=== PATIENT | male | born 1950 | race Caucasian/White ===

== ENCOUNTER 2019-12-05 06:35 | Emergency (ER) | payer MEDICARE, BC ==
[2019-12-05] MEDS ORDERED: Sodium Chloride 0.9% 10 ML Syringe FLUSH PRN (06:59)
--- NOTE | 2019-12-05 07:11 | EDM.PDOC ---
ED HPI GENERAL MEDICAL PROBLEM - General Chief Complaint: General Stated Complaint: cough, shortness of breath Time Seen by Provider: 12/05/19 07:05 Source of Information: Reports: Patient History Limitations: Reports: No Limitations - History of Present Illness INITIAL COMMENTS - FREE TEXT/NARRATIVE: presents with for worsening cough and SOB for the past two weeks. He was started on a zpack after one week of the cough, no relief, then was started on Levaquin, took that only for two days stopped it because it made him dizzy and upset stomach. He called in and was told to stop the levaquin and start cefdinir 300 mg BID 10 days. He picked up the medicine last night and did not start it yet. Patient notes arriving here this early am due to having a coughing attack and broke out in a sweat. He notes having some mild SOB when he walks. HE denies Chest pain or chest pressure, fevers, chills, myalgia, weakness, fatigue, H/a or any sick contacts or known Covid-19 exposures. - Related Data Allergies Allergy/AdvReac Type Severity Reaction Status Date / Time No Known Drug Allergies Allergy Cannot Verified 12/05/19 06:41 Remember Home Meds: Home Meds Albuterol Sulfate [Albuterol Sulfate Hfa] 18 gm IH Q4HR PRN #1 [email or web address] 12/05/19 [Rx] Aspirin 162 mg PO DAILY 12/05/19 [History] Losartan Potassium 50 mg PO DAILY 12/05/19 [History] Nitroglycerin [Nitrostat] 0.4 mg SL ASDIRECTED 12/05/19 [History] Prasugrel HCl [Effient] 10 mg PO DAILY 12/05/19 [History] Spironolactone [Aldactone] 25 mg PO DAILY 12/05/19 [History] atorvaSTATin Calcium [Atorvastatin Calcium] 80 mg PO DAILY 12/05/19 [History] carvediloL [Carvedilol] 6.25 mg PO BID 12/05/19 [History] ED ROS GENERAL - Review of Systems Review Of Systems: See Below Constitutional: Reports: Diaphoresis. Denies: Fever, Chills, Malaise, Weakness, Fatigue HEENT: Denies: Ear Pain, Rhinitis, Sinus Problem, Throat Pain Respiratory: Reports: Wheezing, Cough, Other (occassional productive cough with white sputum.). Denies: Pleuritic Chest Pain, Hemoptysis Cardiovascular: Denies: Chest Pain, Edema, Palpitations GI/Abdominal: Reports: No Symptoms. Denies: Abdominal Pain, Diarrhea, Nausea, Vomiting Musculoskeletal: Reports: No Symptoms Skin: Reports: Diaphoresis, Other (episode of diaphoresis during a coughing episode x1 this early am.) Neurological: Reports: No Symptoms. Denies: Confusion, Dizziness, Headache Psychiatric: Reports: No Symptoms ED EXAM, GENERAL - Physical Exam Exam: See Below Exam Limited By: No Limitations General Appearance: Alert, WD/WN, No Apparent Distress Ears: Normal Canal, Normal TMs Nose: Normal Inspection, Normal Mucosa Throat/Mouth: Normal Inspection, Normal Oropharynx Head: Atraumatic, Normocephalic Neck: Normal Inspection, Supple, Non-Tender Respiratory/Chest: Decreased Breath Sounds, Wheezing. No: Respiratory Distress, Accessory Muscle Use Cardiovascular: Normal Peripheral Pulses, Regular Rate, Rhythm, No Edema, No Murmur Peripheral Pulses: 2+: Radial (L), Radial (R) GI/Abdominal: Normal Bowel Sounds, Soft, Non-Tender, No Mass, Other (obese) Back Exam: Normal Inspection, Full Range of Motion Extremities: Normal Inspection, Normal Range of Motion, Non-Tender. No: Genna's Sign Neurological: Alert, Oriented, Normal Gait Psychiatric: Normal Affect, Normal Mood Skin Exam: Warm, Dry, Intact, Normal Color. No: Diaphoretic Course - Vital Signs Last Recorded V/S: Last Vital Signs Temp 98.0 F 12/05/19 06:43 Pulse 87 12/05/19 07:45 Resp 22 H 12/05/19 07:45 BP 97/64 12/05/19 07:45 Pulse Ox 92 L 12/05/19 07:45 - Orders/Labs/Meds Orders: Active Orders 24 hr Category Date Time Status Peripheral IV Care [RC] . DIRECTED Care 12/05/19 07:00 Active Sodium Chloride 0.9% [Saline Flush] Med 12/05/19 06:59 Active 10 ml FLUSH Q8HR PRN Peripheral IV Insertion Adult [OM.PC] Routine Oth 12/05/19 06:59 Ordered Medication Orders Sodium Chloride (Saline Flush) 10 ml FLUSH Q8HR PRN PRN Reason: keep vein open Labs: Laboratory Tests 12/05/19 12/05/19 12/05/19 Range/Units 06:50 06:50 06:50 WBC 3.57 L (5.00-10.00) 10^3/uL RBC 4.20 L (4.50-6.00) 10^6/uL Hgb 12.7 L (13.0-17.0) g/dL Hct 37.4 L (40.0-52.0) % MCV 89.0 (82.0-92.0) fL MCH 30.2 (27.0-31.0) pg MCHC 34.0 (32.0-36.0) g/dL RDW 13.2 (11.5-14.5) % Plt Count 171 (150-400) 10^3/uL MPV 10.8 H (7.4-10.4) fL Immature Gran % (Auto) 0.6 (0.0-5.0) % Neut % (Auto) 52.0 (50.0-70.0) % Lymph % (Auto) 31.9 (20.0-40.0) % Milam % (Auto) 14.6 H (2.0-8.0) % Eos % (Auto) 0.6 L (1.0-3.0) % Baso % (Auto) 0.3 (0.0-1.0) % Neut # (Auto) 1.86 L (2.50-7.00) 10^3/uL Lymph # (Auto) 1.14 (1.00-4.00) 10^3/uL Milam # (Auto) 0.52 (0.10-0.80) 10^3/uL Eos # (Auto) 0.02 L (0.10-0.30) 10^3/uL Baso # (Auto) 0.01 (0.00-0.10) 10^3/uL Immature Gran # (Auto) 0.02 (0.00-0.50) 10^3/uL Sodium 139 (136-145) mmol/L Potassium 3.3 (3.3-5.3) mmol/L Chloride 103 (98-115) mmol/L Carbon Dioxide 24.6 (21.0-32.0) mmol/L Anion Gap 14.7 (5-15) mmol/L BUN 9 (6-25) mg/dL Creatinine 0.74 (0.51-1.17) mg/dL Est Cr Clr Drug Dosing 85.02 mL/min Estimated GFR (MDRD) > 60 mL/min Glucose 134 H (75 - 99) mg/dL Lactic Acid (0.4-2.0) mmol/L Calcium 8.1 L (8.7-10.3) mg/dL Troponin I < 0.04 (0.00-0.070) ng/mL C-Reactive Protein 7.7 H (0.0-0.9) mg/dL B-Natriuretic Peptide 28 (0-100) pg/mL 12/05/19 Range/Units 06:50 WBC (5.00-10.00) 10^3/uL RBC (4.50-6.00) 10^6/uL Hgb (13.0-17.0) g/dL Hct (40.0-52.0) % MCV (82.0-92.0) fL MCH (27.0-31.0) pg MCHC (32.0-36.0) g/dL RDW (11.5-14.5) % Plt Count (150-400) 10^3/uL MPV (7.4-10.4) fL Immature Gran % (Auto) (0.0-5.0) % Neut % (Auto) (50.0-70.0) % Lymph % (Auto) (20.0-40.0) % Milam % (Auto) (2.0-8.0) % Eos % (Auto) (1.0-3.0) % Baso % (Auto) (0.0-1.0) % Neut # (Auto) (2.50-7.00) 10^3/uL Lymph # (Auto) (1.00-4.00) 10^3/uL Milam # (Auto) (0.10-0.80) 10^3/uL Eos # (Auto) (0.10-0.30) 10^3/uL Baso # (Auto) (0.00-0.10) 10^3/uL Immature Gran # (Auto) (0.00-0.50) 10^3/uL Sodium (136-145) mmol/L Potassium (3.3-5.3) mmol/L Chloride (98-115) mmol/L Carbon Dioxide (21.0-32.0) mmol/L Anion Gap (5-15) mmol/L BUN (6-25) mg/dL Creatinine (0.51-1.17) mg/dL Est Cr Clr Drug Dosing mL/min Estimated GFR (MDRD) mL/min Glucose (75 - 99) mg/dL Lactic Acid 1.5 (0.4-2.0) mmol/L Calcium (8.7-10.3) mg/dL Troponin I (0.00-0.070) ng/mL C-Reactive Protein (0.0-0.9) mg/dL B-Natriuretic Peptide (0-100) pg/mL Meds: Medications Generic Name Dose Route Start Last Admin Trade Name Freq PRN Reason Stop Dose Admin Sodium Chloride 10 ml 12/05/19 06:59 Saline Flush FLUSH Q8HR PRN keep vein open - Re-Assessments/Exams Free Text/Narrative Re-Assessment/Exam: on arrival to ED, spO2 was 88% on a room air when he got done walking, he was placedon 2 L, sp 02 97%, I did take him off the 2 L after 30 minutes, sP o2 dropped down to 90%. He is not SOB. pt was given 2 L of NC, SP 02 95-96%. Patient has no cp, systematic symptoms, mild cough non prod while sitting in bed. 12/05/19 07:31 He denies any hx of hemoptysis, night sweats, any foreign travel. BP is slightly low, he did take his home BP meds, and normally runs on the lower side, MAPs all well above 65 mmHg. 12/05/19 08:02 12/05/19 08:25 consult patient with his PCP caroline Hobbs 19 test order to be sent state, return precautions discussed with patient. 12/05/19 08:27 12/05/19 08:37 no signs of pneumonia, consider COPD/bronchitis, continue cefdinir, inhaler added for the wheezing, return precaustions discussed with patient, Departure - Departure Time of Disposition: 08:25 Disposition: Home, Self-Care 01 Condition: Good Clinical Impression: Bronchitis Acute bronchitis Qualifiers: Bronchitis organism: unspecified organism Qualified Code(s): J20.9 - Acute bronchitis, unspecified - Discharge Information *PRESCRIPTION DRUG MONITORING PROGRAM REVIEWED*: Not Applicable *COPY OF PRESCRIPTION DRUG MONITORING REPORT IN PATIENT EJ: Not Applicable Prescriptions: Albuterol Sulfate [Albuterol Sulfate Hfa] 18 gm IH Q4HR PRN #1 [email or web address] PRN Reason: Wheezing Instructions: Acute Bronchitis, Adult Referrals: Faby Westbrook PA-C [Primary Care Provider] - Forms: ED Department Discharge Additional Instructions: return if SOB occurs, cough does not improve, or any new or concerning symptoms. use the inhaler for the cough/shortness of breath/ wheezing Sepsis Event Note (ED) - Evaluation Sepsis Screening Result: No Definite Risk - Focused Exam Vital Signs: Vital Signs Temp Pulse Resp BP Pulse Ox 12/05/19 07:45 87 22 H 97/64 92 L 12/05/19 07:30 82 22 H 106/71 92 L 12/05/19 07:15 84 18 96/78 93 L 12/05/19 07:03 85 24 H 105/79 95 12/05/19 06:45 84 24 H 113/68 93 L 12/05/19 06:43 98.0 F 87 22 H 115/77 88 L - My Orders Last 24 Hours: My Active Orders 12/05/19 06:59 Sodium Chloride 0.9% [Saline Flush] 10 ml FLUSH Q8HR PRN Peripheral IV Insertion Adult [OM.PC] Routine 12/05/19 07:00 Peripheral IV Care [RC] . DIRECTED - Assessment/Plan Last 24 Hours: My Active Orders 12/05/19 06:59 Sodium Chloride 0.9% [Saline Flush] 10 ml FLUSH Q8HR PRN Peripheral IV Insertion Adult [OM.PC] Routine 12/05/19 07:00 Peripheral IV Care [RC] . DIRECTED
[2019-12-05 07:47] LABS: ANION GAP 14.7 mmol/L (5-15); CHLORIDE,CL 103 mmol/L (98-115); SODIUM,NA 139 mmol/L (136-145)
--- NOTE | 2019-12-05 08:13 | CR ---
[id number] RAD/RAD Chest PA or AP 1V EXAM: RAD Chest PA or AP 1V INDICATION: COUGH, SHORTNESS OF BREATH. COMPARISON: 2011. DISCUSSION: Cardiomediastinal silhouette is normal in size and contour. No infiltrate, effusion, pneumothorax, or edema. Scarring in the right lung base. IMPRESSION: As above. Aubrey Zapata MD 12/05/19 0812 Thank you for allowing us to participate in the care of your patient.
[2019-12-05 08:45] VITALS: BP 109/88; PULSE 88
== END 2019-12-05 09:00 | disposition home or self-care (01) ==
LOC: KA.ED 06:35
DX: J20.9 Acute bronchitis, unspecified (principal); E66.9 Obesity, unspecified; U07.1 COVID-19; Z68.30 Body mass index [BMI] 30.0-30.9, adult; Z79.82 Long term (current) use of aspirin; Z79.899 Other long term (current) drug therapy
CPT/HCPCS: 71045; 80048; 83605; 83880; 84484; 85025; 86140; 99283; 99285; U0002

== ENCOUNTER 2021-03-05 16:50 | Emergency (ER) | payer MEDICARE, BC ==
--- NOTE | 2021-03-05 17:10 | EDM.PDOC ---
ED HPI GENERAL MEDICAL PROBLEM - General Chief Complaint: Cardiovascular Problem Stated Complaint: COUGH Time Seen by Provider: 03/05/21 17:09 Source of Information: Reports: Patient, Family History Limitations: Reports: No Limitations - History of Present Illness INITIAL COMMENTS - FREE TEXT/NARRATIVE: Sven, 70-year-old male, presents by private vehicle to the emergency department for evaluation of his respiratory/cardiac function and questioning COVID-19. Today while seated in chair he felt lightheaded/dizzy and has had a noted cough for the past few days. He denies fever or chills, and in general has felt well at his baseline. He underwent a preoperative physical on the 25 February 2021 at [facility] with no documentation of that visit available. He is not vaccinated for Covid-19. Onset: Today Duration: Minutes:, Intermittent Location: Reports: Chest Quality: Reports: Other Severity: Moderate Improves with: Reports: None Worsens with: Reports: None Context: Reports: Other Associated Symptoms: Reports: Cough, Other (dizziness) - Related Data Allergies Allergy/AdvReac Type Severity Reaction Status Date / Time No Known Drug Allergies Allergy Cannot Verified 03/05/21 17:41 Remember Home Meds: Home Meds Aspirin 81 mg PO DAILY 12/05/19 [History] Losartan Potassium 50 mg PO DAILY 12/05/19 [History] Nitroglycerin [Nitrostat] 0.4 mg SL ASDIRECTED 12/05/19 [History] Prasugrel HCl [Effient] 10 mg PO DAILY 12/05/19 [History] Spironolactone [Aldactone] 25 mg PO DAILY 12/05/19 [History] atorvaSTATin Calcium [Atorvastatin Calcium] 80 mg PO DAILY 12/05/19 [History] carvediloL [Carvedilol] 6.25 mg PO BID 12/05/19 [History] Acetaminophen [Tylenol Arthritis] 650 mg PO DAILY PRN 03/05/21 [History] Ascorbate Calcium [Vitamin C] 500 mg PO DAILY 03/05/21 [History] Diclofenac Sodium [Voltaren] 75 mg PO BIDMEALS PRN 03/05/21 [History] Multivitamin with Minerals [Multiple Vitamin] 1 tab PO DAILY 03/05/21 [History] Non-Formulary Medication [NF Drug] 1 applic TOP BID 03/05/21 [History] traMADol [Ultram] 50 - 100 mg PO Q6H PRN 03/05/21 [History] Past Medical History HEENT History: Reports: Impaired Vision Cardiovascular History: Reports: High Cholesterol, Hypertension, [place], Stents Respiratory History: Reports: None Gastrointestinal History: Reports: None, Other (See Below) ("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) Genitourinary History: Reports: None Musculoskeletal History: Reports: None Neurological History: Reports: None Psychiatric History: Reports: None Endocrine/Metabolic History: Reports: Obesity/BMI 30+ Hematologic History: Reports: None Immunologic History: Reports: None Oncologic (Cancer) History: Reports: None Dermatologic History: Reports: None - Past Surgical History Cardiovascular Surgical History: Reports: Coronary Artery Stent Respiratory Surgical History: Reports: None GI Surgical History: Reports: None Male Surgical History: Reports: None Endocrine Surgical History: Reports: None Neurological Surgical History: Reports: None Musculoskeletal Surgical History: Reports: None Oncologic Surgical History: Reports: None Dermatological Surgical History: Reports: None Social & Family History - Family History Family Medical History: No Pertinent Family History - Caffeine Use Caffeine Use: Reports: None ED ROS GENERAL - Review of Systems Review Of Systems: See Below Constitutional: Reports: No Symptoms HEENT: Reports: No Symptoms Respiratory: Reports: Cough Cardiovascular: Reports: Blood Pressure Problem, Lightheadedness. Denies: Chest Pain, Dyspnea on Exertion, Palpitations, Syncope Endocrine: Reports: No Symptoms GI/Abdominal: Reports: No Symptoms : Reports: No Symptoms Musculoskeletal: Reports: Joint Pain (knee) Skin: Reports: No Symptoms Neurological: Reports: Dizziness Psychiatric: Reports: No Symptoms Hematologic/Lymphatic: Reports: No Symptoms Immunologic: Reports: No Symptoms ED EXAM, GENERAL - Physical Exam Exam: See Below Free Text/Narrative:: Alert, oriented, in no acute distress. There is no evidence of cyanosis nor pallor. HEENT is negative the discharge no deformity. PERRLA no icterus no injection. Mazie moist mucous membranes with no erythema or exudate noted in the oral cavity. Neck is soft supple short thomason neck with no lymphadenopathy no JVD appreciated. Thorax is clear throughout with no wheezes nor crackles exhalation does not induce cough. Cardiac is somewhat distant due to body habitus with S1-S2 I do not appreciate murmur. Abdomen is rotund soft bowel sounds are present there is no hepatosplenomegaly nor tenderness noted. No edema to the lower extremities. Initial hypertensive reading when repeated is in normal standings with good oxygen saturation denying any chest pain shortness of breath with his predominant event being a 3-day cough and the dizziness or lightheadedness that experienced this afternoon. This is not reproduced since his arrival nor actual ly since the one event while seated at home. #1 Interpretation EKG Date: 03/05/21 Time: 17:36 Rhythm: NSR Rate (Beats/Min): 66 [place]: Normal P-Wave: Present QRS: Normal ST-T: Normal QT: Normal Comparison: NA - No Prior EKG (Image unavailable, written summary comparison.) Course - Vital Signs Last Recorded V/S: Last Vital Signs Temp 96.4 F L 03/05/21 16:55 Pulse 70 03/05/21 18:00 Resp 20 03/05/21 18:00 BP 142/75 H 03/05/21 18:00 Pulse Ox 95 03/05/21 18:00 - Orders/Labs/Meds Orders: Active Orders 24 hr Category Date Time Status Chest 1V Frontal [CR] Stat Exams 03/05/21 17:07 Ordered EKG 12 Lead [EK] Stat Ther 03/05/21 17:08 Ordered Labs: Laboratory Tests 03/05/21 03/05/21 03/05/21 Range/Units 17:00 17:15 17:15 WBC 4.17 L (5.00-10.00) 10^3/uL RBC 4.08 L (4.50-6.00) 10^6/uL Hgb 12.8 L (13.0-17.0) g/dL Hct 38.2 L (40.0-52.0) % MCV 93.6 H D (82.0-92.0) fL MCH 31.4 H (27.0-31.0) pg MCHC 33.5 (32.0-36.0) g/dL RDW 13.1 (11.5-14.5) % Plt Count 174 (150-400) 10^3/uL MPV 10.0 (7.4-10.4) fL Immature Gran % (Auto) 0.7 (0.0-5.0) % Neut % (Auto) 44.9 L (50.0-70.0) % Lymph % (Auto) 35.3 (20.0-40.0) % Luna % (Auto) 17.0 H (2.0-8.0) % Eos % (Auto) 1.9 (1.0-3.0) % Baso % (Auto) 0.2 (0.0-1.0) % Neut # (Auto) 1.87 L (2.50-7.00) 10^3/uL Lymph # (Auto) 1.47 (1.00-4.00) 10^3/uL Luna # (Auto) 0.71 (0.10-0.80) 10^3/uL Eos # (Auto) 0.08 L (0.10-0.30) 10^3/uL Baso # (Auto) 0.01 (0.00-0.10) 10^3/uL Immature Gran # (Auto) 0.03 (0.00-0.50) 10^3/uL Sodium 141 (136-145) mmol/L Potassium 3.8 (3.5-5.1) mmol/L Chloride 102 (98-107) mmol/L Carbon Dioxide 26.3 (21.0-32.0) mmol/L Anion Gap 16.5 H (5-15) mmol/L BUN 12 (7-18) mg/dL Creatinine 0.74 (0.51-1.17) mg/dL Est Cr Clr Drug Dosing 85.60 mL/min Estimated GFR (MDRD) > 60 mL/min Glucose 161 H (70-140) mg/dL Calcium 8.1 L (8.7-10.3) mg/dL Total Bilirubin 1.2 H (0.2-1.0) mg/dL AST 22 (15-37) U/L ALT 41 (14-63) U/L Alkaline Phosphatase 57 (46-116) U/L Troponin I High Sens 9.100 (0-76.000) pg/mL Total Protein 6.7 (6.4-8.2) g/dL Albumin 3.54 (3.40-5.00) g/dL SARS CoV-2 RNA Rapid ANNABELLE Negative (NEGATIVE) - Radiology Interpretation Free Text/Narrative:: Cardiac silhouette upper limits of normal with no evidence of infiltrate there is some comparative scarring in the right lung base from comparative in 2019. Departure - Departure Time of Disposition: 18:15 Disposition: Home, Self-Care 01 Condition: Good Clinical Impression: Cough, COVID-19 ruled out by laboratory testing, Hyperglycemia - Discharge Information *PRESCRIPTION DRUG MONITORING PROGRAM REVIEWED*: Not Applicable *COPY OF PRESCRIPTION DRUG MONITORING REPORT IN PATIENT EJ: Not Applicable Instructions: Cough, Adult, COVID-19: Quarantine vs. Isolation - [facility] (03/25/2020) Referrals: Carmenza Garcia, [employer] [Primary Care Provider] - Forms: ED Department Discharge Additional Instructions: Your test results today returned with mildly elevated blood sugar which would be attributed to your cough syrup and eating before the emergency department visit. Your Covid 19 test is negative. Your EKG shows no evidence of any cardiac involvement, overall stable and unchanged since May 2017. Lab work shows no evidence of infection with your electrolytes and kidney function all being normal. You need to continue your medications as directed. Cough syrup or lozenges as needed. Avoid high sugar high carbohydrate diet. Follow-up as scheduled for your knee replacement as you will need a Covid test prior to that procedure being performed. Follow-up with your clinic as scheduled and needed and consider emergency d epartment services outside of clinic hours. - Problem List & Annotations (1) Cough SNOMED Code(s): 13154446 Code(s): R05.9 - COUGH, UNSPECIFIED Status: Acute Priority: Medium (2) Hyperglycemia SNOMED Code(s): 06602494 Code(s): R73.9 - HYPERGLYCEMIA, UNSPECIFIED Status: Acute Priority: Medium (3) COVID-19 ruled out by laboratory testing SNOMED Code(s): 490330180255432711, 387525504387171897 Code(s): Z20.822 - CONTACT WITH AND (SUSPECTED) EXPOSURE TO COVID-19 Status: Acute Priority: High - Problem List Review Problem List Initiated/Reviewed/Updated: Yes - My Orders Last 24 Hours: My Active Orders 03/05/21 17:07 Chest 1V Frontal [CR] Stat 03/05/21 17:08 EKG 12 Lead [EK] Stat - Assessment/Plan Last 24 Hours: My Active Orders 03/05/21 17:07 Chest 1V Frontal [CR] Stat 03/05/21 17:08 EKG 12 Lead [EK] Stat Plan: Your test results today returned with mildly elevated blood sugar which would be attributed to your cough syrup and eating before the emergency department visit. Your Covid 19 test is negative. Your EKG shows no evidence of any cardiac involvement, overall stable and unchanged since May 2017. Lab work shows no evidence of infection with your electrolytes and kidney function all being normal. You need to continue your medications as directed. Cough syrup or lozenges as needed. Avoid high sugar high carbohydrate diet. Follow-up as scheduled for your knee replacement as you will need a Covid test prior to that procedure being performed. Follow-up with your clinic as scheduled and needed and consider emergency department services outside of clinic hours.
[2021-03-05 17:42] LABS: ANION GAP 16.5 mmol/L (5-15); CHLORIDE,CL 102 mmol/L (98-107); SODIUM,NA 141 mmol/L (136-145)
[2021-03-05 18:30] VITALS: BP 142/75; PULSE 70
== END 2021-03-05 18:30 | disposition home or self-care (01) ==
LOC: KA.ED 16:50
DX: R05.9 Cough, unspecified (principal); R73.9 Hyperglycemia, unspecified; E78.00 Pure hypercholesterolemia, unspecified; I10 Essential (primary) hypertension; I25.2 Old myocardial infarction; E66.9 Obesity, unspecified; Z68.31 Body mass index [BMI] 31.0-31.9, adult; Z95.5 Presence of coronary angioplasty implant and graft; Z79.82 Long term (current) use of aspirin; Z79.899 Other long term (current) drug therapy; Z20.822 Contact with and (suspected) exposure to COVID-19
CPT/HCPCS: 36415; 71045; 80053; 84484; 85025; 93010; 99284; 99284-25; U0002

== ENCOUNTER 2021-08-09 22:55 | Emergency (ER) | payer MEDICARE, BC ==
[2021-08-09] MEDS ORDERED: Sodium Chloride 0.9% 1,000 ML ONE (23:19)
[2021-08-09] MEDS ORDERED: Sodium Chloride 0.9% 1,000 ML IV ONE (23:25)
[2021-08-09] MEDS ORDERED: HYDROmorphone 1 MG/ML Syringe ONE (23:54)
[2021-08-09] MEDS ORDERED: HYDROmorphone 1 MG/ML Syringe IVPUSH ONE (23:56)
[2021-08-10 00:08] LABS: ANION GAP 15.7 mmol/L (5-15); CHLORIDE,CL 104 mmol/L (98-107); SODIUM,NA 139 mmol/L (136-145)
[2021-08-10] MEDS ORDERED: Iopamidol 755 Mg/ML 75 ML Bottle IVPUSH ONE (00:14)
[2021-08-10] MEDS ORDERED: Sodium Chloride 0.9% 50 ML IV ONE (00:20)
[2021-08-10] MEDS ORDERED: Iopamidol 755 Mg/ML 100 ML Bottle IVPUSH ONE (00:39)
[2021-08-10] MEDS: Sodium Chloride 0.9% 1,000 ML IV SCH ×4 (00:50→15:00)
[2021-08-10] MEDS ORDERED: cefTRIAXone 1 GM Vial IVPUSH ONE (02:28)
[2021-08-10] MEDS ORDERED: metroNIDAZOLE/Normal Saline 500 MG in Premix Bag 1 BAG IV ONE (02:28)
[2021-08-10] MEDS ORDERED: HYDROmorphone 1 MG/ML Syringe IVPUSH PRN (02:42)
[2021-08-10] MEDS ORDERED: Water For Injection, Sterile 20 ML ONE (02:42)
[2021-08-10 16:41] VITALS: BP 154/78; PULSE 74
== END 2021-08-10 16:00 ==
LOC: KA.ED 22:55
DX: K85.90 Acute pancreatitis without necrosis or infection, unspecified (principal); K81.0 Acute cholecystitis; U07.1 COVID-19; E78.00 Pure hypercholesterolemia, unspecified; I10 Essential (primary) hypertension; I25.2 Old myocardial infarction; E66.9 Obesity, unspecified; Z79.82 Long term (current) use of aspirin; Z95.5 Presence of coronary angioplasty implant and graft; Z20.822 Contact with and (suspected) exposure to COVID-19; Z68.31 Body mass index [BMI] 31.0-31.9, adult
CPT/HCPCS: 36415; 74177; 80053; 81003; 83605; 83690; 85025; 93005; 96365; 96375; 96376; 99284; 99285-25; J0696; J1170; J3490; J7030; Q9967; U0002

== ENCOUNTER 2021-08-13 10:09 | Emergency (ER) | payer MEDICARE, BC ==
[2021-08-13 13:46] VITALS: BP 121/76; PULSE 71
== END 2021-08-13 11:00 | disposition home or self-care (01) ==
LOC: KA.ED 10:09
DX: K92.1 Melena (principal); E78.00 Pure hypercholesterolemia, unspecified; I10 Essential (primary) hypertension; I25.2 Old myocardial infarction; E66.9 Obesity, unspecified; Z68.30 Body mass index [BMI] 30.0-30.9, adult; Z95.5 Presence of coronary angioplasty implant and graft; Z79.82 Long term (current) use of aspirin; Z79.899 Other long term (current) drug therapy
CPT/HCPCS: 36415; 85025; 99284

== ENCOUNTER 2021-08-14 16:30 | Emergency (ER) | payer MEDICARE, BC ==
[2021-08-14 16:43] VITALS: BP 113/79; PULSE 94
== END 2021-08-14 17:08 | disposition home or self-care (01) ==
LOC: KA.ED 16:30
DX: K21.9 Gastro-esophageal reflux disease without esophagitis (principal); E78.00 Pure hypercholesterolemia, unspecified; I10 Essential (primary) hypertension; I25.2 Old myocardial infarction; E66.9 Obesity, unspecified; Z68.32 Body mass index [BMI] 32.0-32.9, adult; Z95.5 Presence of coronary angioplasty implant and graft; Z79.899 Other long term (current) drug therapy
CPT/HCPCS: 99283; 99284

== ENCOUNTER 2021-08-14 20:35 | Emergency (ER) | payer MEDICARE, BC ==
[2021-08-14] MEDS ORDERED: Ketorolac 30 MG/ML SDV ONE (20:50)
[2021-08-14] MEDS ORDERED: Ketorolac 30 MG/ML SDV IVPUSH ONE (21:05)
[2021-08-14] MEDS ORDERED: Iopamidol 755 Mg/ML 100 ML Bottle IVPUSH ONE (21:17)
[2021-08-14] MEDS ORDERED: Sodium Chloride 0.9% 50 ML IV ONE (21:18)
[2021-08-14 21:40] LABS: ANION GAP 15.3 mmol/L (5-15); CHLORIDE,CL 106 mmol/L (98-107); SODIUM,NA 141 mmol/L (136-145)
[2021-08-14] MEDS ORDERED: Sodium Chloride 0.9% 1,000 ML IV ONE (23:49)
[2021-08-15] MEDS ORDERED: metroNIDAZOLE/Normal Saline 500 MG in Premix Bag 1 BAG IV ONE (00:26)
[2021-08-15] MEDS ORDERED: cefTRIAXone 1 GM Vial IVPUSH ONE (00:26)
[2021-08-15] MEDS ORDERED: Water For Injection, Sterile 20 ML ONE (00:54)
[2021-08-15] MEDS ORDERED: Sodium Chloride 0.9% 1,000 ML ONE (01:05)
[2021-08-15 04:58] VITALS: BP 124/76; PULSE 86
== END 2021-08-15 01:15 ==
LOC: KA.ED 20:35
DX: K85.90 Acute pancreatitis without necrosis or infection, unspecified (principal); K81.0 Acute cholecystitis; E78.00 Pure hypercholesterolemia, unspecified; I10 Essential (primary) hypertension; I25.2 Old myocardial infarction; E66.9 Obesity, unspecified; Z95.5 Presence of coronary angioplasty implant and graft; Z79.82 Long term (current) use of aspirin; Z79.899 Other long term (current) drug therapy; Z68.32 Body mass index [BMI] 32.0-32.9, adult
CPT/HCPCS: 36415; 74177; 80053; 83690; 85025; 86140; 96374; 96375; 99284; 99285-25; J0696; J3490; J7030; Q9967

== ENCOUNTER 2021-10-17 10:05 | Emergency (ER) | payer MEDICARE, BC ==
[2021-10-17] MEDS ORDERED: Aspirin 81 MG Tab.Chew ONE (10:17)
[2021-10-17] MEDS ORDERED: Aspirin 81 MG Tab.Chew PO ONE (10:21)
[2021-10-17 16:29] VITALS: BP 153/78; PULSE 57
== END 2021-10-17 16:40 | disposition home or self-care (01) ==
LOC: KA.ED 10:05
DX: R00.2 Palpitations (principal); R61 Generalized hyperhidrosis; E78.00 Pure hypercholesterolemia, unspecified; I10 Essential (primary) hypertension; I25.2 Old myocardial infarction; E66.9 Obesity, unspecified; Z68.30 Body mass index [BMI] 30.0-30.9, adult; Z79.899 Other long term (current) drug therapy; Z79.82 Long term (current) use of aspirin; Z87.891 Personal history of nicotine dependence
CPT/HCPCS: 36415; 71045; 80053; 83735; 84484; 85025; 93005; 99285; A9270-GY

== ENCOUNTER 2023-03-07 11:10 | Emergency (ER) | payer MEDICARE, BC ==
[2023-03-07] MEDS: Sodium Chloride 0.9% 1,000 ML IV ONE (11:28)
[2023-03-07 11:29] LABS: BASOPHILS ABSOLUTE AUTO 0.02 10^3/uL (0.00-0.10); BASOPHILS PERCENT AUTO 0.4 % (0.0-1.0); EOSINOPHILS ABSOLUTE AUTO 0.07 10^3/uL (0.10-0.30); EOSINOPHILS PERCENT AUTO 1.4 % (1.0-3.0); HEMATOCRIT 35.8 % (40.0-52.0); IMMATURE GRAN ABSOLUTE AUTO 0.02 10^3/uL (0.00-0.50); IMMATURE GRAN PERCENT AUTO 0.4 % (0.0-5.0); LYMPHOCYTES ABSOLUTE AUTO 1.65 10^3/uL (1.00-4.00); LYMPHOCYTES PERCENT AUTO 33.7 % (20.0-40.0); MEAN CORPUSCULAR HEMOGLOBIN 31.3 pg (27.0-31.0); MEAN CORPUSCULAR HGB CONC 33.5 g/dL (32.0-36.0); MEAN CORPUSCULAR VOLUME 93.5 fL (82.0-92.0); MEAN PLATELET VOLUME 10.1 fL (7.4-10.4); MONOCYTES ABSOLUTE AUTO 0.52 10^3/uL (0.10-0.80); MONOCYTES PERCENT AUTO 10.6 % (2.0-8.0); NEUTROPHILS ABSOLUTE AUTO 2.61 10^3/uL (2.50-7.00); NEUTROPHILS PERCENT AUTO 53.5 % (50.0-70.0); PLATELET COUNT,PLT 282 10^3/uL (150-400); RED BLOOD CELL COUNT 3.83 10^6/uL (4.50-6.00); RED CELL DISTRIBUTION WIDTH 13.7 % (11.5-14.5); WHITE BLOOD CELL COUNT,WBC 4.89 10^3/uL (5.00-10.00)
[2023-03-07 11:49] LABS: ALANINE AMINOTRANSFERASE,ALT 32 U/L (14-63); ALBUMIN 3.17 g/dL (3.40-5.00); ALKALINE PHOSPHATASE 54 U/L (46-116); ANION GAP 13.7 mmol/L (5-15); ASPARTATE AMNIOTRANSFERASE,AST 22 U/L (15-37); BILIRUBIN TOTAL 1.1 mg/dL (0.2-1.0); BLOOD UREA NITROGEN,BUN 20 mg/dL (7-18); CALCIUM 8.1 mg/dL (8.7-10.3); CARBON DIOXIDE,CO2 24.2 mmol/L (21.0-32.0); CHLORIDE,CL 104 mmol/L (98-107); CREATININE 1.21 mg/dL (0.51-1.17); ESTIMATED GFR 63 mL/min (>=60); GLUCOSE RANDOM 129 mg/dL (70-140); POTASSIUM,K 3.9 mmol/L (3.5-5.1); PROTEIN TOTAL,TP 6.3 g/dL (6.4-8.2); SODIUM,NA 138 mmol/L (136-145)
[2023-03-07 15:35] VITALS: BP 138/70; PULSE 58
== END 2023-03-07 13:13 | disposition home or self-care (01) ==
LOC: KA.ED 11:10
DX: R42 Dizziness and giddiness (principal); R55 Syncope and collapse; R63.8 Other symptoms and signs concerning food and fluid intake; I10 Essential (primary) hypertension; E78.00 Pure hypercholesterolemia, unspecified; I25.2 Old myocardial infarction; E66.9 Obesity, unspecified; Z68.33 Body mass index [BMI] 33.0-33.9, adult; Z95.5 Presence of coronary angioplasty implant and graft; Z79.82 Long term (current) use of aspirin; Z79.899 Other long term (current) drug therapy
CPT/HCPCS: 36415; 71045; 71046; 80053; 84484; 85025; 93010; 96360; 99284; 99284-25; J7030

== ENCOUNTER 2023-05-12 08:06 | Emergency (ER) | payer MEDICARE, BC ==
[2023-05-12 09:01] VITALS: BP 115/70; PULSE 73
[2023-05-12] MEDS: Cyclobenzaprine 10 MG Tab PO ONE (09:18)
== END 2023-05-12 09:24 | disposition home or self-care (01) ==
LOC: KA.ED 08:06
DX: S39.012A Strain of muscle, fascia and tendon of lower back, initial encounter (principal); I10 Essential (primary) hypertension; I25.2 Old myocardial infarction; E78.00 Pure hypercholesterolemia, unspecified; E66.9 Obesity, unspecified; Z79.899 Other long term (current) drug therapy; Z79.82 Long term (current) use of aspirin; Z79.891 Long term (current) use of opiate analgesic; Z68.32 Body mass index [BMI] 32.0-32.9, adult
CPT/HCPCS: 99283

== ENCOUNTER 2024-08-15 23:22 | Emergency (ER) | payer MEDICARE, BC ==
[2024-08-16 00:09] LABS: BASOPHILS ABSOLUTE AUTO 0.04 10^3/uL (0.00-0.10); BASOPHILS PERCENT AUTO 0.5 % (0.0-1.0); EOSINOPHILS ABSOLUTE AUTO 0.14 10^3/uL (0.10-0.30); EOSINOPHILS PERCENT AUTO 1.8 % (1.0-3.0); HEMATOCRIT 36.1 % (40.0-52.0); HEMOGLOBIN 12.1 g/dL (13.0-17.0); IMMATURE GRAN ABSOLUTE AUTO 0.03 10^3/uL (0.00-0.04); IMMATURE GRAN PERCENT AUTO 0.4 % (0.0-0.4); LYMPHOCYTES ABSOLUTE AUTO 1.99 10^3/uL (1.00-4.00); LYMPHOCYTES PERCENT AUTO 25.7 % (20.0-40.0); MEAN CORPUSCULAR HEMOGLOBIN 31.5 pg (27.0-31.0); MEAN CORPUSCULAR HGB CONC 33.5 g/dL (32.0-36.0); MONOCYTES ABSOLUTE AUTO 0.67 10^3/uL (0.10-0.80); MONOCYTES PERCENT AUTO 8.7 % (2.0-8.0); NEUTROPHILS ABSOLUTE AUTO 4.87 10^3/uL (2.50-7.00); NEUTROPHILS PERCENT AUTO 62.9 % (50.0-70.0); PLATELET COUNT,PLT 408 10^3/uL (150-400); RED BLOOD CELL COUNT 3.84 10^6/uL (4.50-6.00); RED CELL DISTRIBUTION WIDTH 14.7 % (11.5-14.5); WHITE BLOOD CELL COUNT,WBC 7.74 10^3/uL (5.00-10.00)
[2024-08-16 00:24] LABS: ALANINE AMINOTRANSFERASE,ALT 27 U/L (14-63); ALBUMIN 3.63 g/dL (3.40-5.00); ALKALINE PHOSPHATASE 73 U/L (46-116); ANION GAP 16.2 mmol/L (5-15); ASPARTATE AMNIOTRANSFERASE,AST 25 U/L (15-37); BILIRUBIN TOTAL 1.9 mg/dL (0.2-1.0); BLOOD UREA NITROGEN,BUN 22 mg/dL (7-18); CALCIUM 8.1 mg/dL (8.7-10.3); CARBON DIOXIDE,CO2 21.8 mmol/L (21.0-32.0); CHLORIDE,CL 96 mmol/L (98-107); CREATININE 1.25 mg/dL (0.51-1.17); ESTIMATED GFR 60 mL/min (>=60); GLUCOSE RANDOM 107 mg/dL (70-140); PROTEIN TOTAL,TP 6.7 g/dL (6.4-8.2); SODIUM,NA 130 mmol/L (136-145)
[2024-08-16 00:25] LABS: ETHANOL BLOOD MEDICAL 202 mg/dL (<3)
[2024-08-16] MEDS: Diphtheria,Pertussis(Acell),Tetanus Vaccine 0.5 ML Syringe IM ONE (00:40)
[2024-08-16 02:14] VITALS: BP 138/65; PULSE 65
== END 2024-08-16 02:20 | disposition home or self-care (01) ==
LOC: KA.ED 23:22
DX: S50.811A Abrasion of right forearm, initial encounter (principal); S50.812A Abrasion of left forearm, initial encounter; S00.81XA Abrasion of other part of head, initial encounter; F10.920 Alcohol use, unspecified with intoxication, uncomplicated; Z23 Encounter for immunization; I10 Essential (primary) hypertension; E78.00 Pure hypercholesterolemia, unspecified; E66.9 Obesity, unspecified; Z79.82 Long term (current) use of aspirin; Z79.899 Other long term (current) drug therapy; Z90.49 Acquired absence of other specified parts of digestive tract; Z87.891 Personal history of nicotine dependence; Z68.31 Body mass index [BMI] 31.0-31.9, adult; W19.XXXA Unspecified fall, initial encounter; Y92.009 Unspecified place in unspecified non-institutional (private) residence as the place of occurrence of the external cause
CPT/HCPCS: 36415; 70450; 72125; 80053; 80307; 85025; 90471; 90715; 99284; 99284-25